=== PATIENT | male | born 1985 | race African-American/Black ===

== ENCOUNTER 2019-12-23 15:55 | Outpatient (REF) | payer OTHER, SELFPAY ==
[2019-12-24 08:15] LABS: COVID-19 Test Positive (Negative)
== END 2019-12-23 15:56 | disposition home or self-care (01) ==
LOC: HO.LAB 15:55
PROVIDERS: Visit Provider Internal Medicine
DX: Z20.828 Contact with and (suspected) exposure to other viral communicable diseases (principal)
CPT/HCPCS: 87635